=== PATIENT | male | born 1940 | race Caucasian/White ===

== ENCOUNTER 2016-12-02 12:05 | Emergency (ER) | payer MEDICARE, OTHER ==
[~2016-12-02] VITALS: Ht 177.8 cm; Wt 121.3 kg
[2016-12-02 12:14] VITALS: BP_SYST 142; BP_SYST 155; BP_DIAS 68; PULSE 70; PULSE 82; RESP 16; TEMP 97.5; O2SAT 93
[2016-12-02] MEDS ORDERED: TAMS5CAP PO (12:22)
[2016-12-02] MEDS ORDERED: ATOR1TAB18 PO (12:22)
[2016-12-02] MEDS ORDERED: AMLO10TA2 PO (12:22)
[2016-12-02] MEDS ORDERED: DONE10TA7 PO (12:22)
[2016-12-02] MEDS ORDERED: METF500T PO (12:22)
[2016-12-02] MEDS ORDERED: POTA10CA PO (12:22)
[2016-12-02] MEDS ORDERED: DILT1TAB4 PO (12:22)
[2016-12-02] MEDS ORDERED: SYMB160A INH (12:22)
[2016-12-02] MEDS ORDERED: CLOP75TA PO (12:22)
[2016-12-02] MEDS ORDERED: VENTAER INH (12:22)
[2016-12-02] MEDS ORDERED: ASPI-110 PO (12:22)
[2016-12-02] MEDS ORDERED: PRIM50TA5 PO (12:22)
[2016-12-02] MEDS ORDERED: SPIRCAP INH (12:22)
[2016-12-02] MEDS ORDERED: FURO40TA PO (12:22)
[2016-12-02] MEDS ORDERED: RESP: ALBUTEROL 2.5 MG/IPRATROPIUM 0.5 MG NEB (SCH) NEB ONE (12:30)
--- NOTE | 2016-12-02 12:31 | PD ---
HPI Chief Complaint: Abdominal Pain Time Seen by Provider: 12:21 Travel History International Travel<30 days: No Contact w/Intl Traveler<30days: No Traveled to known affect area: No History of Present Illness HPI 76 y/o male presents with left-sided abdominal pain that has been present over the past couple of days. He states he's having difficulty urinating with only small amounts since last night. He does note history of prostate issues. He denies prior kidney stones or other significant abdominal history other than having his gallbladder removed and a hernia repair. Quality is pressure. Severity is moderate. He denies specific modifying factors. He states it starts in his back and moves around to the front. PFSH Past Medical History Narrative Medical A. fib, diabetes, high blood pressure, coronary artery disease, COPD Past Surgical History Narrative Surgical Cholecystectomy, cardiac stent, umbilical hernia repair Social History Tobacco Use: Yes Allergies-Medications (Allergen,Severity, Reaction): Coded Allergies: [place] (Verified Allergy, Unknown, 12/02/16) White Fish (Verified Allergy, Unknown, 12/02/16) Reported Meds & Prescriptions Reported Meds & Active Scripts Active Reported Spiriva Handihaler (Tiotropium Inh) 18 Mcg Cap 18 Mcg INH DAILY 1 capsule = 18 mcg Symbicort Inh (Budesonide/Formoterol Fumarate) 160-4.5 Mcg/Act Aero 1 Puff INH Q12HR Ventolin Hfa 18 GM Inh (Albuterol Sulfate) 90 Mcg/Act Aer 1 Puff INH Q6HR PRN Atorvastatin (Atorvastatin Calcium) 80 Mg Tab 80 Mg PO HS Furosemide 40 Mg Tab 40 Mg PO DAILY Potassium Chloride ER (Potassium Chloride) 10 Meq Cap 10 Meq PO DAILY Amlodipine (Amlodipine Besylate) 10 Mg Tab 10 Mg PO DAILY Primidone 50 Mg Tab 100 Mg PO BID Metformin (Metformin HCl) 500 Mg Tab 500 Mg PO BIDPC With meals Aspirin 81 (Aspirin) 81 Mg Tabdr 81 Mg PO DAILY Clopidogrel (Clopidogrel Bisulfate) 75 Mg Tab 75 Mg PO DAILY Flomax (Tamsulosin HCl) 0.4 Mg Cap 0.4 Mg PO HS Donepezil 10 Mg Tab 10 Mg PO HS Diltiazem ER 24 HR 240 Mg Pascual 240 Mg PO DAILY Review of Systems Except as stated in HPI: all other systems reviewed are Neg Physical Exam Narrative GENERAL: Well-nourished, well-developed patient. SKIN: Warm and dry. HEAD: Normocephalic and atraumatic. EYES: No injection or drainage. ENT: No nasal drainage noted. NECK: Supple, trachea midline. CARDIOVASCULAR: Regular rate and rhythm RESPIRATORY: No increased effort. No accessory muscle use. GASTROINTESTINAL: Abdomen soft, tender left abdomen, nondistended. NEUROLOGICAL: Awake and alert. Moves all extremities. Normal speech. Data Data Last Documented VS Vital Signs Date Time Temp Pulse Resp B/P Pulse Ox O2 Delivery O2 Flow Rate FiO2 12/02/16 12:40 94 Nasal Cannula 2.00 12/02/16 12:14 97.5 70 16 155/68 Orders Complete Blood Count With Diff (12/02/16 12:21) Comprehensive Metabolic Panel (12/02/16 12:21) Urinalysis - C+S If Indicated (12/02/16 12:21) Lipase (12/02/16 12:21) Iv Access Insert/Monitor (12/02/16 12:21) Oximetry (12/02/16 12:21) Ct Abd/Pel W/O Iv Contrast (12/02/16 ) Urinary Catheter Insert/Apply (12/02/16 12:25) Albuterol-Ipratropium Neb (Duoneb Neb) (12/02/16 12:30) Labs Laboratory Tests Test 12/02/16 12:34 White Blood Count 6.6 TH/MM3 Red Blood Count 4.15 MIL/MM3 Hemoglobin 11.4 GM/DL Hematocrit 35.7 % Mean Corpuscular Volume 86.0 FL Mean Corpuscular Hemoglobin 27.5 PG Mean Corpuscular Hemoglobin 32.0 % Concent Red Cell Distribution Width 14.2 % Platelet Count 157 TH/MM3 Mean Platelet Volume 9.0 FL Neutrophils (%) (Auto) 71.6 % Lymphocytes (%) (Auto) 12.9 % Monocytes (%) (Auto) 9.6 % Eosinophils (%) (Auto) 5.3 % Basophils (%) (Auto) 0.6 % Neutrophils # (Auto) 4.7 TH/MM3 Lymphocytes # (Auto) 0.9 TH/MM3 Monocytes # (Auto) 0.6 TH/MM3 Eosinophils # (Auto) 0.3 TH/MM3 Basophils # (Auto) 0.0 TH/MM3 CBC Comment DIFF FINAL Differential Comment Urine Color LIGHT-YELLOW Urine Turbidity CLEAR Urine pH 5.0 Urine Specific [place] 1.010 Urine Protein NEG mg/dL Urine Glucose (UA) NEG mg/dL Urine Ketones NEG mg/dL Urine Occult Blood NEG Urine Nitrite NEG Urine Bilirubin NEG Urine Urobilinogen LESS THAN 2.0 MG/DL Urine Leukocyte Esterase NEG Microscopic Urinalysis Comment CULT NOT INDICATED Sodium Level 138 MEQ/L Potassium Level 3.8 MEQ/L Chloride Level 100 MEQ/L Carbon Dioxide Level 31.2 MEQ/L Anion Gap 7 MEQ/L Blood Urea Nitrogen 14 MG/DL Creatinine 0.43 MG/DL Estimat Glomerular Filtration 192 ML/MIN Rate Random Glucose 120 MG/DL Calcium Level 9.0 MG/DL Total Bilirubin 0.4 MG/DL Aspartate Amino Transf 13 U/L (AST/SGOT) Alanine Aminotransferase 21 U/L (ALT/SGPT) Alkaline Phosphatase 134 U/L Total Protein 6.6 GM/DL Albumin 3.3 GM/DL Lipase 95 U/L [facility] Medical Decision Making Medical Screen Exam Complete: Yes Emergency Medical Condition: Yes Medical Record Reviewed: Yes (past history confirmed) Interpretation(s) CBC & BMP Diagram 12/02/16 12:34 Last 24 hours Impressions Abdomen/Pelvis CT 12/02/16 0000 Signed Impressions: Service Date/Time: , December 02, 2016 13:14 - CONCLUSION: 1. Slight prominence left collecting system without significant hydronephrosis. This could be related to previous passage of a calculus. 2. Urinary bladder is decompressed by Babin catheter however there is some slight inflammation and questionable wall thickening. Urinalysis and followup recommended. 3. Status post cholecystectomy. Gil Garcia MD Differential Diagnosis Kidney stone, pancreatitis, diverticulitis, UTI, retention, renal failure Narrative Course Will check blood work, urinalysis, CT scan and reevaluate. Pain medicine declined on initial evaluation Patient denies any new complaints and states that they are feeling better after babin placement. Patient happy with care, all questions answered. Patient knows that follow up is incumbent on them and to return to the emergency room immediately if new or worsening symptoms develop. Patient given strict return precautions, vitals reviewed and are normal, agrees to further workup as an outpatient. Diagnosis Primary Impression: Abdominal pain Qualified Code: R10.32 - Left lower quadrant pain Additional Impression: Urinary retention Patient Instructions: Babin Catheter Placement and Care (ED), General Instructions Additional Instructions: return as needed, follow with urologist this week, tylenol as needed Med/Other Pt SpecificInfo: No Change to Meds Disposition: 01 DISCHARGE HOME Condition: Stable Garima Rice MD Dec 02, 2016 12:31
[2016-12-02 12:40] VITALS: O2SAT 94
[2016-12-02 12:53] LABS: AUTOMATED NEUTROPHIL # 4.7 TH/MM3 (1.8-7.7); BASOPHIL % 0.6 % (0.0-2.0); EOSINOPHIL # 0.3 TH/MM3 (0-0.4); EOSINOPHIL % 5.3 % (0.0-4.0); HEMATOCRIT 35.7 % (39.0-51.0); HEMO FLAGS DIFF FINAL; LYMPH % 12.9 % (9.0-44.0); LYMPHOCYTE # 0.9 TH/MM3 (1.0-4.8); MEAN CORPUSCULAR HEMOGLOBIN 27.5 PG (27.0-34.0); MONO % 9.6 % (0.0-8.0); NEUT % 71.6 % (16.0-70.0); PLATELET COUNT 157 TH/MM3 (150-450); RED BLOOD COUNT 4.15 MIL/MM3 (4.50-5.90); RED CELL DISTRIBUTION WIDTH 14.2 % (11.6-17.2); WHITE BLOOD COUNT 6.6 TH/MM3 (4.0-11.0)
[2016-12-02 12:57] LABS: BLOOD, URINE NEG (NEG); GLUCOSE,URINE NEG (NEG); KETONE, URINE NEG (NEG); NITRITE,URINE NEG (NEG); URINE COLOR LIGHT-YELLOW (YELLW/STRAW)
[2016-12-02 12:59] LABS: COMMENT (UR) CULT NOT INDICATED; CULTURE IF INDICATED CULT NOT INDICATED
[2016-12-02 13:16] LABS: ANION GAP 7 MEQ/L (5-15); AST (GOT) 13 U/L (15-37); BICARBONATE 31.2 MEQ/L (21.0-32.0); BLOOD UREA NITROGEN 14 MG/DL (7-18); CHLORIDE 100 MEQ/L (98-107); GLOMERULAR FILTRATION RATE 192 ML/MIN (>89); POTASSIUM 3.8 MEQ/L (3.5-5.1); SODIUM (NA) 138 MEQ/L (136-145)
[2016-12-02 13:18] LABS: ALT (GPT) 21 U/L (12-78)
[2016-12-02 13:19] LABS: ALKALINE PHOSPHATASE 134 U/L (45-117); TOTAL BILIRUBIN ADULT 0.4 MG/DL (0.2-1.0)
--- NOTE | 2016-12-02 14:01 | RADRPT ---
EXAM DATE/TIME: 12/02/2016 13:14 [place] COMPARISON: No previous studies available for comparison. INDICATIONS : Left flank pain for one day. ORAL CONTRAST: No oral contrast ingested. RADIATION DOSE: 14.25 CTDIvol (mGy) MEDICAL HISTORY : Hypertension. Diabetes mellitus type 2. AFIB, CHF. SURGICAL HISTORY : Cholecystectomy. Coronary artery stent.Inguinal hernia repair. ENCOUNTER: Initial ACUITY: 1 day PAIN SCALE: 6/10 LOCATION: Left upper quadrant TECHNIQUE: Volumetric scanning of the abdomen and pelvis was performed. Using automated exposure control and ad justment of the mA and/or kV according to patient size, radiation dose was kept as low as reasonably achievable to obtain optimal diagnostic quality images. DICOM format image data is available electro nically for review and comparison. FINDINGS: LOWER LUNGS: The visualized lower lungs are clear. LIVER: Homogeneous density without lesion. There is no dilation of the biliary tree. Cholecystectomy clips. SPLEEN: Normal size without lesion. PANCREAS: Within normal limits. KIDNEYS: Normal in size and shape. There is no mass, stone, or hydronephrosis. Slight prominence left collect ing system. ADRENAL GLANDS: Within normal limits. VASCULAR: There is no aortic aneurysm. BOWEL/MESENTERY: The stomach, small bowel, and colon demonstrate no acute abnormality. There is no free intraperitone al air or fluid. ABDOMINAL WALL: Within normal limits. RETROPERITONEUM: There is no lymphadenopathy. BLADDER: Bladder is decompressed by Canela catheter however there is some slight inflammation and questionable wall thickening. The bladder does extend into the right pelvis. REPRODUCTIVE: Within normal limits. INGUINAL: There is no lymphadenopathy or hernia. MUSCULOSKELETAL: Within normal limits for patient age. CONCLUSION: 1. Slight prominence left collecting system without significant hydronephrosis. This could be related to previous passage of a calculus. 2. Urinary bladder is decompressed by Canela catheter however there is some slight inflammation and qu estionable wall thickening. Urinalysis and followup recommended. 3. Status post cholecystectomy. Gil Garcia MD on December 02, 2016 at 13:56 Board Certified Radiologist. This report was verified electronically.
[2016-12-02 15:12] VITALS: BP 162/74
== END 2016-12-02 15:18 | disposition home or self-care (01) ==
LOC: NEPE 12:05
DX: R10.32 Left lower quadrant pain (principal); R33.9 Retention of urine, unspecified; E11.9 Type 2 diabetes mellitus without complications; I10 Essential (primary) hypertension; Z72.0 Tobacco use; Z79.84 Long term (current) use of oral hypoglycemic drugs; Z86.79 Personal history of other diseases of the circulatory system; Z87.09 Personal history of other diseases of the respiratory system; Z87.438 Personal history of other diseases of male genital organs
CPT/HCPCS: 51703; 74176; 80053; 81001; 83690; 85025; 94640; 94664